=== PATIENT | female | born 1975 | race Hispanic/Latino ===

== ENCOUNTER 2021-04-26 13:53 | Outpatient (CLI) | payer BC, OTHER | END 2021-04-26 13:54 | disposition home or self-care (01) | LOC: BURRAD 13:53 | PROVIDERS: ATTEND Physician Assistant | DX: M25.561 Pain in right knee (principal); M25.461 Effusion, right knee ==

== ENCOUNTER 2022-02-23 16:36 | Outpatient (CLI) | payer BC, OTHER | END 2022-02-23 16:37 | disposition home or self-care (01) | LOC: BURRAD 16:36 | PROVIDERS: ATTEND Physician Assistant | DX: M79.671 Pain in right foot (principal); M79.89 Other specified soft tissue disorders ==